=== PATIENT | male | born 1990 | race Asian ===

== ENCOUNTER 2024-06-21 08:20 | Outpatient (CLI) | payer BC | END 2024-06-21 08:21 | disposition home or self-care (01) | LOC: CSHSLEEP 08:20 | PROVIDERS: ATTEND Family Medicine | DX: G47.33 Obstructive sleep apnea (adult) (pediatric) (principal); G47.10 Hypersomnia, unspecified; R53.83 Other fatigue; K21.9 Gastro-esophageal reflux disease without esophagitis; E66.9 Obesity, unspecified; Z68.38 Body mass index [BMI] 38.0-38.9, adult; R06.83 Snoring; G47.00 Insomnia, unspecified | CPT/HCPCS: 95811 ==